=== PATIENT | male | born 1985 | race Caucasian/White ===

== ENCOUNTER 2018-08-26 12:16 | Inpatient (IN) ==
[2018-08-26] MEDS ORDERED: DULCOLAX PR PRN (12:54)
[2018-08-26] MEDS ORDERED: SALINE LOCK IV FLUID XX ONE (12:54)
[2018-08-26] MEDS ORDERED: MAALOX PLUS LIQUID PO PRN (12:54)
[2018-08-26] MEDS ORDERED: PHENOBARBITAL IV PRN (12:54)
[2018-08-26] MEDS ORDERED: DESYREL PO PRN (12:54)
[2018-08-26] MEDS ORDERED: IMODIUM PO PRN (12:54)
[2018-08-26] MEDS ORDERED: MOTRIN PO PRN (12:54)
[2018-08-26] MEDS ORDERED: ROBAXIN PO PRN (12:54)
[2018-08-26] MEDS ORDERED: ZOFRAN IV PRN (12:54)
[2018-08-26] MEDS ORDERED: D5W 1,000 ML IV PRN (12:54)
[2018-08-26] MEDS ORDERED: SEROQUEL PO PRN (12:54)
[2018-08-26] MEDS ORDERED: ATARAX PO PRN (12:54)
[2018-08-26] MEDS ORDERED: TUBERSOL ID ONE (12:54)
[2018-08-26] MEDS ORDERED: BENTYL PO PRN (12:54)
[2018-08-26] MEDS ORDERED: SENOKOT PO PRN (12:54)
[2018-08-26] MEDS ORDERED: TYLENOL PO PRN (12:54)
[2018-08-26] MEDS ORDERED: ZOFRAN ODT PO PRN (12:54)
[2018-08-26] MEDS ORDERED: NICODERM PATCH TD PRN (12:54)
[2018-08-26] MEDS ORDERED: M.V.I.-12 10 ML, FOLIC ACID 1 MG, MAGNESIUM SULFATE 1 GM, THIAMINE 100 MG in NS 1,000 ML IV ONE (14:00)
[2018-08-26 14:02] LABS: HEMATOCRIT 44.3 % (42.0-52.0); HEMOGLOBIN 16.1 g/dL (14.0-18.0); MCH 33.1 PG (27-31); MCHC 36.3 g/dL (33-37); MCV 91.2 FL (81-99); MPV 9.1 FL (7.4-10.4); RBC 4.86 XMIL (4.7-6.1); RDW 12.1 % (11.5-14.5); WBC 6.95 X1000 (4.8-10.8)
[2018-08-26 14:18] LABS: INR 0.94; PROTIME 13.1 Seconds (11.0-16.0)
[2018-08-26 14:19] LABS: AMYLASE 39 U/L (20-200); LIPASE 32 U/L (13-60)
[2018-08-26 14:21] LABS: AGAP 15; ALBUMIN 4.6 g/dL (3.5-5.0); ALKALINE PHOSPHATASE 81 U/L (32-122); BUN 9 mg/dL (8-22); CALCIUM 9.3 mg/dL (8.8-10.2); CHLORIDE 101 mmol/L (98-107); COSMO 280; CREATININE 0.9 mg/dL (0.7-1.2); ESTIMATED GFR > 60; GLUCOSE 104 mg/dL (70-104); GOT 79 U/L (10-34); GPT 105 U/L (10-44); SODIUM 141 mmol/L (136-145); TCO2 25 mmol/L (25-35)
[2018-08-26 14:36] LABS: UR AMPHETAMINES QUAL NONE DETECTED (NONE DETECT); UR BARBITUATES QUAL NONE DETECTED (NONE DETECT); UR BENZODIAZEPIN QUAL NONE DETECTED (NONE DETECT); UR CANNABINOIDS QUAL NONE DETECTED (NONE DETECT); UR COCAINE QUAL NONE DETECTED (NONE DETECT); UR METHADONE QUAL NONE DETECTED (NONE DETECT); UR METHAMPHETAMINE QUAL NONE DETECTED (NONE DETECT); UR OPIATES QUAL NONE DETECTED (NONE DETECT); UR OXYCODONE QUAL NONE DETECTED (NONE DETECT); UR PCP QUAL NONE DETECTED (NONE DETECT); UR PROPOXYPHENE QUAL NONE DETECTED (NONE DETECT); UR TCA QUAL NONE DETECTED (NONE DETECT)
[2018-08-26 16:12] LABS: URINE SOURCE VOIDED
[2018-08-26] MEDS: LIBRIUM PO SCH ×2 (16:17→22:27)
[2018-08-26 16:20] LABS: BILIRUBIN URINE NEGATIVE (NEGATIVE); BLOOD URINE NEGATIVE (NEGATIVE); CLARITY CLEAR (CLEAR); COLOR YELLOW; GLUCOSE URINE NEGATIVE (NEGATIVE); KETONE URINE NEGATIVE (NEGATIVE); LEUKOCYTES URINE TRACE (NEGATIVE); NITRITE URINE NEGATIVE (NEGATIVE); PROTEIN URINE NEGATIVE (NEGATIVE); UROBILINOGEN URINE NORMAL
[2018-08-26 16:24] LABS: URINE BACTERIA NEGATIVE /HFP; URINE CAST NONE SEEN /LPF; URINE CRYSTAL NONE SEEN /HPF; URINE EPITHELIAL CELLS <10 /HPF (<10); URINE RBC <10 /HPF (<10); URINE WBC <10 /HPF (<10); URINE YEAST NONE SEEN /HPF
[2018-08-27] MEDS: LIBRIUM PO SCH ×5 (03:41→22:02)
[2018-08-27] MEDS: PROTONIX PO SCH (06:48)
[2018-08-27] MEDS: VITAMIN B-1 PO SCH (09:29)
[2018-08-27] MEDS: FOLIC ACID PO SCH (09:29)
[2018-08-27] MEDS: THERA M PLUS PO SCH (09:29)
[2018-08-27] MEDS ORDERED: LIBRIUM PO SCH (14:30)
[2018-08-28] MEDS: LIBRIUM PO SCH ×4 (03:58→21:43)
[2018-08-28] MEDS: PROTONIX PO SCH (06:29)
--- NOTE | 2018-08-28 10:45 | PROGRESS NOTE ---
DATE: 08/27/2018 SUBJECTIVE: Patient notes he is starting to feel a little bit better. He is still sleepy, but his tremors are improved. Nausea and vomiting is improved. Abdominal pain has improved. PHYSICAL EXAMINATION: Vital Signs: Temperature 98, pulse 70, respiratory 20, and BP 143/83. General: Patient is awake and alert. He is in much less distress than he was on admission. He has no tremors. HEENT: Normocephalic and atraumatic. NORMA. Neck: Supple. No JVD. CARDIOVASCULAR: Regular rate. Chest: Clear. Abdomen: Soft. Extremities: Moves all extremities. Neurologic: No changes. ASSESSMENT: 1. Nausea and vomiting. 2. Abdominal pain. 3. Myalgias. 4. Tremors. 5. Paresthesias. 6. Paroxysmal sweating. 7. Alcohol abuse withdrawal and admit for stabilization. PLAN: We will continue patient in the hospital. Continue Librium taper. Continue counseling. Discussed with patient naltrexone on discharge. cc: Gavino Pablo MD
[2018-08-28] MEDS: VITAMIN B-1 PO SCH (11:00)
[2018-08-28] MEDS: FOLIC ACID PO SCH (11:01)
[2018-08-28] MEDS: THERA M PLUS PO SCH (11:01)
--- NOTE | 2018-08-28 11:14 | PROGRESS NOTE ---
DATE: 08/28/2018 SUBJECTIVE: Patient notes he is feeling better, less muscle aches, less tremors. Slept well last night. OBJECTIVE: Vital Signs: On physical examination, temperature 98.3 degrees, pulse 65, respiratory rate 20, BP 140/83. General: Patient is awake, alert, currently in no distress. HEENT: Normocephalic. Neck: Supple. CV: Regular rate. No murmurs. Chest: Clear, nonlabored. Abdomen: Soft, nondistended, nontender. Extremities: Moves all extremities. Neurologic: No focal changes. Skin: Warm and dry. No rashes. ASSESSMENT: 1. Nausea, vomiting, abdominal pain. 2. Myalgias. 3. Paresthesias. 4. Paroxysmal sweating. 5. Tremors. 6. Alcohol abuse, withdrawal and stabilization. PLAN: Patient currently is on 50 mg of Librium. We will continue to wean. Hopefully tomorrow he can tolerate 25 three times a day, as well as the addition of naltrexone and be discharged home. Again, discussed with patient counseling. cc: Gavino Pablo MD
[2018-08-29] MEDS: LIBRIUM PO SCH ×2 (04:20→09:47)
[2018-08-29] MEDS: PROTONIX PO SCH (06:17)
[2018-08-29 07:37] LABS: HEMATOCRIT 42.6 % (42.0-52.0); HEMOGLOBIN 15.1 g/dL (14.0-18.0); MCH 32.9 PG (27-31); MCHC 35.4 g/dL (33-37); MCV 92.8 FL (81-99); MPV 9.4 FL (7.4-10.4); RBC 4.59 XMIL (4.7-6.1); RDW 12.1 % (11.5-14.5); WBC 7.55 X1000 (4.8-10.8)
[2018-08-29 08:03] LABS: AGAP 13; ALBUMIN 4.2 g/dL (3.5-5.0); ALKALINE PHOSPHATASE 79 U/L (32-122); BUN 12 mg/dL (8-22); CALCIUM 9.4 mg/dL (8.8-10.2); CHLORIDE 103 mmol/L (98-107); COSMO 283; CREATININE 1.1 mg/dL (0.7-1.2); ESTIMATED GFR > 60; GLUCOSE 95 mg/dL (70-104); GOT 93 U/L (10-34); GPT 121 U/L (10-44); POTASSIUM 3.7 mmol/L (3.5-5.1); SODIUM 142 mmol/L (136-145); TCO2 25 mmol/L (25-35); TOTAL PROTEIN 6.4 g/dL (6.3-8.3)
[2018-08-29] MEDS: VITAMIN B-1 PO SCH (09:48)
[2018-08-29] MEDS: THERA M PLUS PO SCH (09:48)
[2018-08-29] MEDS: FOLIC ACID PO SCH (09:48)
--- NOTE | 2018-08-29 10:34 | HISTORY AND PHYSICAL ---
CHIEF COMPLAINT: Nausea and vomiting. HISTORY OF PRESENT ILLNESS: Patient is a 33-year-old male who presented to [facility] secondary to nausea, vomiting, abdominal pain, myalgias, paresthesias. States he has been using and abusing alcohol again. He has been having mild tremors. Notes that he has to get off alcohol and states he feels more committed this time than previously. SOCIAL HISTORY: Patient is single. He works at [email or web address]. He lives at home in [place]. PAST MEDICAL HISTORY: He has no current active medical problems other than chronic anxiety and depression which cause him to start drinking again. He does have a history of blackouts due to alcoholism. ALLERGIES: Trazodone and penicillin. MEDICATIONS: On no current prescription medications. REVIEW OF SYSTEMS: CIWA score is 8 secondary to nausea, vomiting, paroxysmal sweating, severe anxiety, agitation, frequent episodes of insomnia due to depression and anxiety. Denies any chest pain or palpitations. States he is having tremors but notes these are mild and usually worsen over the next few days when he does not drink. Denies diarrhea, constipation, melena, hematochezia, dysuria, frequency, or urgency. Denies hesitancy. Denies any skin rashes, weight loss, or weight gain. FAMILY HISTORY: Noncontributory to his current situation. SUBSTANCE ABUSE HISTORY: The patient has been in treatment multiple times in the past. He has been in [facility] in 2001 for 28 days. He did not remain sober. Was in [facility] again in 2018. Stayed sober for a few months. He was in [facility] in 2018. Remained sober for 2 months afterwards. He started drinking as early as age 10. Currently drinks 3 to 4 bottles of wine a night. Does not use any other poly substances. Does not smoke. PHYSICAL EXAMINATION: VITAL SIGNS: Reviewed and stable. GENERAL: He is awake, alert. He is in no current respiratory distress. He is very pleasant to talk with. He has mild tachycardia. Blood pressure is stable. Respiratory 20. The patient is alert and oriented. He is in no respiratory distress. HEENT: Normocephalic. NECK: Supple. CV: Regular rate. No murmurs. CHEST: Clear and nonlabored. ABDOMEN: Soft, nondistended, nontender. EXTREMITIES: Moves all extremities. NEUROLOGIC: No focal neurological changes. SKIN: Warm and dry. No rashes. ASSESSMENT: 1. Nausea and vomiting. 2. Abdominal pain. 3. Myalgias. 4. Paresthesias. 5. Paroxysmal sweating. 6. Tremors. 7. Chronic anxiety. 8. History of blackouts due to alcoholism. 9. Chronic alcoholism, withdrawal, and stabilization. PLAN: We will continue the patient in the hospital. Continue counseling. Place on high-dose Librium and we will continue to follow. Further orders as needed per his clinical course. cc: Gavino Pablo MD
[2018-08-29] MEDS ORDERED: REVIA PO SCH (10:45)
[2018-08-29 11:00] VITALS: BP 127/78
[2018-08-29] MEDS ORDERED: LIBRIUM PO SCH (13:00)
--- NOTE | 2018-08-29 13:17 | DISCHARGE SUMMARY ---
ADMISSION DATE: 08/26/2018 DISCHARGE DATE: 08/29/2018 DISCHARGE DIAGNOSES: 1. Nausea, vomiting. 2. Abdominal pain. 3. Myalgias. 4. Paresthesias. 5. Paroxysmal sweating. 6. Tremors. 7. Opiate abuse. 8. Alcohol abuse, withdrawal, and stabilization. 9. Acute hepatitis, likely secondary to chronic alcoholism. Hepatitis panel is currently still pending. The patient is aware and understands to follow up with his primary physician regarding the results, as well as in 1 to 2 months to recheck his liver function. CONSULTATIONS: None. PROCEDURES: None. HOSPITAL COURSE: The patient is a 33-year-old male who presented to [facility] secondary to nausea, vomiting, abdominal pain, tremors, and myalgias. He states that he has gone back to drinking. He does have a history of blacking out due to alcoholism. We admitted him to the hospital and placed him on a high-dose Librium taper, which he tolerated well. At one point, he had attempted to tell the nurse that he wanted to wean faster, and had refused 1 dose of Librium. However, shortly after, he started having withdrawal symptoms, and we had to go back to the original course and taper. DISPOSITION: The patient will be discharged home. As noted, he does have hepatitis, although this is likely secondary to alcohol. Hepatitis panel is still currently pending. Discussed with the patient that he needs to follow up outpatient with primary care of his choice regarding the hepatitis panel, as well as to recheck his liver functions in 1 to 2 months. Discussed the perils of alcohol as well as Tylenol. The patient is aware. TIME SPENT: Greater than 30 minutes were spent in total care. We did discharge him with a 4 to 5- day taper of Librium, as well as naltrexone for the next 5 to 6 months. cc: Gavino Pablo MD
[2018-08-31 09:57] LABS: HEPATITIS PROFILE ACUTE SEE COMMENTS
== END 2018-08-29 11:57 | disposition home or self-care (01) | DRG 897 ==
LOC: P.DIRADM 12:18 → P.MEDSURG 12:30
PROVIDERS: ADMIT Family Medicine; ATTEND Family Medicine
CPT/HCPCS: 80053; 80074; 80104; 80301; 80305; 80307; 80320; 81001; 82055; 82150; 83690; 85027; 85610; A9270; G0431; G0434; G0477; G0480; G6040; J3411; J3475; J7030